=== PATIENT | female | born 1940 | race Caucasian/White ===

== ENCOUNTER 2016-04-27 13:05 | Emergency (ER) | payer MEDICARE ==
[~2016-04-27] VITALS: Ht 152.4 cm; Wt 57.7 kg
[~2016-04-27 13:05] MED LIST: ALEN70TA39 PO; ALPR0.25 PO; BUPR-197 PO; CHOLPOW XX; LEVO112T17 PO; LISI40TA PO; TAB-TAB PO; TUMS500C PO; VITD400 PO
[2016-04-27 13:22] VITALS: PULSE 74; RESP 16; TEMP 97.9; O2SAT 98
[2016-04-27 13:23] VITALS: BP 179/103
--- NOTE | 2016-04-27 14:36 | PD ---
HPI Chief Complaint: Fall Time Seen by Provider: 14:36 Travel History International Travel<30 days: No Contact w/Intl Traveler<30days: No Traveled to known affect area: No History of Present Illness HPI 75-year-old female came to the emergency room brought by her friend after she tripped and fell over a block in the store. She tried to break her fall by stretching her arms out and somehow ended up injuring her left shoulder. She was in excruciating pain at the store and was unable to move her left upper extremity. She was afraid that she might have broken. She has been getting ice pack on the shoulder since she's been in the emergency room and now she says she feels little better. Patient denies hitting her head or losing consciousness. PFSH Past Medical History Narrative Medical List of her past medical and social history was reviewed from the nursing note. Hx Anticoagulant Therapy: No Anxiety: Yes Cancer: No Cardiovascular Problems: Yes (htn on meds) High Cholesterol: Yes Diabetes: No Diminished Hearing: No Hepatitis: No Hiatal Hernia: No Hypertension: Yes Medical other: Yes (SINUSITIS,HEARTBURN) Thyroid Disease: Yes (Hypo-) Tetanus Vaccination: < 5 Years Influenza Vaccination: No ?: Not Menopausal: Yes Past Surgical History Gynecologic Surgery: Yes (ENDOMETRIAL ABLATION) Oral Surgery: Yes (T & A) Pacemaker: No Tonsillectomy: Yes Other Surgery: Yes Social History Alcohol Use: Yes (Rarely) Tobacco Use: No Substance Use: No Allergies-Medications (Allergen,Severity, Reaction): Coded Allergies: Preparation H (Verified Allergy, Mild, RASH, 04/27/16) Comments List of allergies reviewed from the nursing note. Reported Meds & Prescriptions Reported Meds & Active Scripts Active Hydrocodone-Acetaminophen 5-325 mg Tab 1 Tab PO Q6H PRN Reported Vitamin D-3 (Cholecalciferol) 400 Unit Tab 400 Unit PO DAILY Tums (Calcium Carbonate) 500 Mg Chew 500 Mg PO DAILY Multivitamin (Multivitamins) 1 Tab Tab 1 Tab PO DAILY Cholestyramine (Cholestyramine (Bulk)) Pow 1 Dose XX BID Alendronate Sodium 70 Mg Tab 70 Mg PO WEEKLY Alprazolam 0.25 Mg Tab 0.25 Mg PO BIDPRN Wellbutrin (Bupropion HCl) 100 Mg Tab 100 Mg PO BID Levoxyl (Levothyroxine Sodium) 112 Mcg Tab 112 Mcg PO DAILY Prinivil 40 mg (Lisinopril) 40 Mg Tab 40 Mg PO DAILY Narrative Medication List of her home medications reviewed from the nursing note. Review of Systems Except as stated in HPI: all other systems reviewed are Neg Physical Exam Narrative GENERAL: Awake, alert, anxious, moderate distress SKIN: Warm and dry. HEAD: Atraumatic. Normocephalic. EYES: Pupils equal and round. No scleral icterus. No injection or drainage. ENT: No nasal bleeding or discharge. Mucous membranes pink and moist. NECK: Trachea midline. No JVD. CARDIOVASCULAR: Regular rate and rhythm. No murmur appreciated. RESPIRATORY: No accessory muscle use. Clear to auscultation. Breath sounds equal bilaterally. GASTROINTESTINAL: Abdomen soft, non-tender, nondistended. Hepatic and splenic margins not palpable. MUSCULOSKELETAL: No obvious deformities. No clubbing. No cyanosis. No edema. Slightly decreased range of motion of her left upper extremity due to the pain NEUROLOGICAL: Awake and alert. No obvious cranial nerve deficits. Motor grossly within normal limits. Normal speech. PSYCHIATRIC: Appropriate mood and affect; insight and judgment normal. Data Data Last Documented VS Vital Signs Date Time Temp Pulse Resp B/P Pulse Ox O2 Delivery O2 Flow Rate FiO2 04/27/16 15:50 69 16 140/78 98 Room Air 04/27/16 13:22 97.9 Orders Acetamin-Hydrocod 325-5 Mg ([place] 5-325 (04/27/16 14:45) Humerus (Min 2vws) (04/27/16 ) Shoulder, Complete (>2vws) (04/27/16 ) Chest, Pa & Lat (04/27/16 ) Sling Cradle Arm (04/27/16 ) Sling Cradle Arm (04/27/16 ) MDM Medical Decision Making Medical Screen Exam Complete: Yes Emergency Medical Condition: Yes Medical Record Reviewed: Yes Differential Diagnosis Shoulder fracture, shoulder dislocation, shoulder strain Narrative Course 3:41 PM patient was medicated for pain with hydrocodone. X-ray was done and does not show any broken bones. Patient will be discharged home. Procedures EKG Prior to Arrival: No Diagnosis Primary Impression: Left shoulder strain Qualified Code: S46.912A - Left shoulder strain, initial encounter Additional Impression: Fall Qualified Code: W19.XXXA - Fall, initial encounter Referrals: Primary Care Physician 3 days Additional Instructions: Keep the shoulder sling on for your comfort. Take the medication given to you as per the prescription direction. Do not drive while on the medication since it'll make you groggy. Follow-up with your primary care in couple days. Med/Other Pt SpecificInfo: Prescription(s) given Scripts Hydrocodone-Acetaminophen 5-325 mg Tab1 Tab PO Q6H PRN (PAIN) #10 TAB Ref 0 Prov:Will Varela MD 04/27/16 Disposition: 01 DISCHARGE HOME Condition: Stable Will Varela MD Apr 27, 2016 14:36
[2016-04-27] MEDS ORDERED: ACETAMINOPHEN/HYDROcodone 325 MG/5 MG TAB PO ONE (14:45)
--- NOTE | 2016-04-27 15:24 | RADHPO ---
EXAM DATE/TIME: 04/27/2016 15:01 [facility] COMPARISON: No previous studies available for comparison. INDICATIONS : Chest pain post fall. MEDICAL HISTORY : None. SURGICAL HISTORY : None. ENCOUNTER: Initial ACUITY: 1 day PAIN SCORE: 4/10 LOCATION: Bilateral chest FINDINGS: Mild hyperinflation is evident without pneumothorax or rib fracture. There is competent cardiomegaly without overt congestive failure. CONCLUSION: Compensated cardiomegaly without congestive failure. Charlie Durham MD FACR on April 27, 2016 at 15:22 Board Certified Radiologist. This report was verified electronically.
--- NOTE | 2016-04-27 15:28 | RADHPO ---
EXAM DATE/TIME: 04/27/2016 15:02 [facility] COMPARISON: No previous studies available for comparison. INDICATIONS : Left shoulder pain post fall. MEDICAL HISTORY : None. SURGICAL HISTORY : None. ENCOUNTER: Initial ACUITY: 1 day PAIN SCORE: 8/10 LOCATION: Left upper extremity FINDINGS: Multiple view examination of the left shoulder demonstrates no evidence of fracture or dislocation. The glenohumeral and acromioclavicular joints are maintained. There is normal range of motion betwee n internal and external rotation. Bony mineralization is normal. CONCLUSION: No acute disease. Charlie Durham MD FACR on April 27, 2016 at 15:23 Board Certified Radiologist. This report was verified electronically.
--- NOTE | 2016-04-27 15:32 | RADHPO ---
EXAM DATE/TIME: 04/27/2016 15:09 [facility] COMPARISON: No previous studies available for comparison. INDICATIONS : Left proximal humerus pain post fall. MEDICAL HISTORY : None. SURGICAL HISTORY : None. ENCOUNTER: Initial ACUITY: 1 day PAIN SCORE: 8/10 LOCATION: Left upper extremity FINDINGS: Two view examination of the left humerus demonstrates no evidence of fracture or dislocation. Bony m ineralization is normal. The soft tissue structures are intact. CONCLUSION: Negative for fracture or dislocation. Follow up in 7-10 days is suggested if symptoms persist.. Charlie Durham MD FACR on April 27, 2016 at 15:27 Board Certified Radiologist. This report was verified electronically.
[2016-04-27] MEDS ORDERED: HYDR-3516 PO (15:43)
[2016-04-27 15:50] VITALS: BP 140/78; PULSE 69; RESP 16; O2SAT 98
== END 2016-04-27 16:00 | disposition home or self-care (01) ==
LOC: PHED 13:05
DX: S46.912A Strain of unspecified muscle, fascia and tendon at shoulder and upper arm level, left arm, initial encounter (principal); W01.0XXA Fall on same level from slipping, tripping and stumbling without subsequent striking against object, initial encounter; Y92.512 Supermarket, store or market as the place of occurrence of the external cause
CPT/HCPCS: 71020; 73030; 73060; 99284